=== PATIENT | male | born 1960 | race Caucasian/White ===

== ENCOUNTER → 2022-05-28 | Outpatient (CLI) | payer OTHER ==
--- NOTE | 2022-05-28 15:02 | CT ---
EXAMINATION TYPE: CT chest wo con DATE OF EXAM: 05/28/2022 COMPARISON: None HISTORY: Pt complains of numbness, tingling and a hot feeling in both arms, with Dyspnea. CT DLP: 438.[address] of the chest was performed with lung and mediastinal window settings submitted. The la ck of contrast limits evaluation of the vascular, mediastinal and parenchymal structures including th e upper abdomen. LUNGS: The lungs are clear and free of infiltrate. No atelectasis. No pulmonary nodule or mass is de tected. No pleural effusion. No CT evidence of interstitial lung disease. MEDIASTINUM/HENOK: Thoracic aorta is of normal caliber with limited evaluation given lack of contrast . The heart is mildly enlarged. No evidence for mediastinal mass. No lymph nodes greater than 1cm . UPPER ABDOMEN: There is evidence of cholelithiasis. Partially imaged renal cystic changes. OTHER: No significant other abnormality. IMPRESSION: 1. No significant intrathoracic process seen to account for the patient's symptoms.
== END | disposition home or self-care (01) ==
LOC: RADCTMAIN 14:21
PROVIDERS: ATTEND Family Medicine
DX: R06.00 Dyspnea, unspecified (principal)
CPT/HCPCS: 71250

== ENCOUNTER → 2024-09-20 | Day surgery (SDC) | payer OTHER ==
[2024-09-18 15:13] VITALS: BMI 26.7
[~2024-09-20] MED LIST: PROPOFOL 10 MG/ML 20 ML VIAL IV ONE
[2024-09-20 07:39] VITALS: TEMP 97.3
[2024-09-20] MEDS: LACTATED RINGERS 1,000 ML IV SCH (07:48)
[2024-09-20] MEDS: IV FLUID CONTINUATION 1,000 ML IV ONE (07:48)
--- NOTE | 2024-09-20 08:28 | P.PCN ---
Date of Procedure: 09/20/24 Procedure(s) Performed: BRIEF HISTORY: Patient is a 64-year-old pleasant white [place] scheduled for an elective colonoscopy as a part of evaluation of chronic diarrhea for the last 6 months duration. He has 3-4 loose bowel movements daily associate with rectal urgency and often has postprandial diarrhea. No rectal bleeding. PROCEDURE PERFORMED: Colonoscopy with random biopsies. PREOPERATIVE DIAGNOSIS: Chronic diarrhea. IV sedation per Anesthesia. PROCEDURE: After informed consent was obtained, the patient, was brought into the endoscopy unit. IV sedation was administered by Anesthesia under continuous monitoring. Digital rectal examination was normal. Initially the Olympus CF-160 flexible video colonoscope was then inserted in the rectum, gradually advanced into the cecum without any difficulty. Careful examination was performed as the scope was gradually being withdrawn. Ileocecal valve and the appendiceal orifice were visualized and appeared normal. Prep was excellent. Mucosa of the cecum, ascending colon, transverse colon, descending colon, sigmoid colon, and rectum appeared normal. Sigmoid diverticulosis seen. Random biopsies were done from the ascending and descending colon to rule out microscopic/collagenous colitis. Retroflexion was performed in the rectum and small internal hemorrhoid were seen. The patient tolerated the procedure well. IMPRESSION: Normal-appearing colon from rectum to cecum with no evidence of colitis or colorectal neoplasia. Scattered sigmoid diverticulosis Small internal hemorrhoids RECOMMENDATIONS: Findings of this examination were discussed with the patient as well as his family. He was advised to follow-up with the biopsy results. He will be seen in the office in 2 to 3 weeks. Recommended repeat screening colonoscopy in 10 years..
[2024-09-20 08:44] VITALS: BP 155/91; PULSE 61; RESP 14
== END ==
LOC: ORWHC2ENDO 07:09
PROVIDERS: ATTEND Internal Medicine Gastroenterology
DX: K62.89 Other specified diseases of anus and rectum (principal); K57.30 Diverticulosis of large intestine without perforation or abscess without bleeding; K64.8 Other hemorrhoids; K52.9 Noninfective gastroenteritis and colitis, unspecified; I10 Essential (primary) hypertension; G47.33 Obstructive sleep apnea (adult) (pediatric); M19.90 Unspecified osteoarthritis, unspecified site; M81.0 Age-related osteoporosis without current pathological fracture; K21.9 Gastro-esophageal reflux disease without esophagitis; Z99.89 Dependence on other enabling machines and devices; Z79.899 Other long term (current) drug therapy
CPT/HCPCS: 45380; J2704; 88305